=== PATIENT | female | born 1965 | race Caucasian/White ===

== ENCOUNTER 2017-01-14 06:00 | Day surgery (SDC) | payer OTHER ==
[~2017-01-14] VITALS: Ht 160 cm; Wt 84.8 kg
[~2017-01-14 06:00] MED LIST: ALEVE220 MG PO; CIPROFLOXACIN500 MG PO; CLONAZEPAM1 MG PO; HYDROCHLOROTHIA25 MG PO; IBUPROFEN800 MG PO; NORCO 5-325 TA1 EACH PO; SUBOXONE 8 MG-1 EAC1 SL; TYLENOL325 MG PO
--- NOTE | 2017-01-14 07:49 | NUR ---
01/14/17 0749 Dipika Cowart [id number]-PATIENT ARRIVED TO PACU ON 4L NC O2 SAT 97% NONAROUSABLE LAYING ON LEFT SIDE. ABDOMEN ROUND AND SOFT. SB HR 57
--- NOTE | 2017-01-21 10:10 | OR ---
[facility] [address], [place] [address] Signed DATE OF OPERATION: 01/14/2017 SURGEON: Ludivina Beckford MD PREOPERATIVE DIAGNOSIS: Screening. POSTOPERATIVE DIAGNOSIS: Extremely poor prep. PROCEDURE: Colonoscopy without biopsy. ESTIMATED BLOOD LOSS: None. INDICATIONS: Lolly is a 51-year-old female, who was asked to see me for her initial screening colonoscopy. She has no lower GI complaints. There is no family history of colon cancer or polyps. In the office, I gave her a pamphlet on colonoscopy and we looked at that together along with the risks including, but not limited to, gas bloating, crampy abdominal pain, bleeding, perforation, requiring surgery, and missed diagnosis. We had also reviewed our bowel prep in detail. She also understands the need for IV conscious sedation. Given her need for daily Suboxone as well as a previous history of methamphetamine and heroin use, we asked that an anesthesia provider help us with increased monitoring sedation with propofol. She had expressed understanding and wished to proceed. PROCEDURE NOTE: Lolly was taken into our endoscopy suite and placed in the left lateral decubitus position. She was given IV sedation with propofol per our nurse milk treater. A digital rectal exam was performed and we did encounter some dark liquid particulate stool. The adult colonoscope was introduced and we carefully and slowly advanced the scope through multiple areas of liquid particulate dark stool. We slowly but surely made our way to the cecum. We could easily see the ileocecal valve. However, there was too much particulate stool matter to suction the stool through the camera. We slowly withdrew the scope. I would say no more than 50% of the colonic mucosa was visualized. Having said that, we saw no pathology throughout the entire colon or rectum. There was too much liquid stool in the rectum to retroflex the scope and once again it went and suctioned through the scope. Consequently, the gas was suctioned out and the colonoscope removed. Electronically Signed By: LUDIVINA BECKFORD MD 01/21/17 1010 PATIENT NAME: LOLLY LOPES OPERATIVE REPORT DATE OF : 63 PHYSICIAN: LUDIVINA BECKFORD MD REPORT #: [id number] REPORT IS CONFIDENTIAL AND NOT TO BE RELEASED WITHOUT AUTHORIZATION [address] [address] Signed Lolly tolerated the procedure quite well. RECOMMENDATIONS: My office will give Lolly a call and will ask her to repeat the colonoscopy with double bowel prep. MD LEIF Conti/MODL /[id number] cc: AUDELIA Reyes Electronically Signed By: LUDIVINA BECKFORD MD 01/21/17 1010 PATIENT NAME: LOLLY LOPES OPERATIVE REPORT DATE OF : 63 PHYSICIAN: LUDIVINA BECKFORD MD REPORT #: [id number] REPORT IS CONFIDENTIAL AND NOT TO BE RELEASED WITHOUT AUTHORIZATION
== END 2017-01-14 08:25 | disposition home or self-care (01) ==
LOC: OPS 06:00 → DS 06:00 → OPS 06:45
PROVIDERS: Colon & Rectal Surgery
PROC: 0DJD8ZZ Inspection of Lower Intestinal Tract, Via Natural or Artificial Opening Endoscopic (ICD-10-PCS; principal; 2017-01-14 06:45)
DX: Z12.11 Encounter for screening for malignant neoplasm of colon (principal); F17.210 Nicotine dependence, cigarettes, uncomplicated; Z98.51 Tubal ligation status; Z98.41 Cataract extraction status, right eye; Z98.42 Cataract extraction status, left eye; Z98.890 Other specified postprocedural states; Z88.8 Allergy status to other drugs, medicaments and biological substances; Z79.899 Other long term (current) drug therapy
CPT/HCPCS: 00810; J2704; J7120

== ENCOUNTER 2017-01-23 12:24 | Emergency (ER) | payer OTHER ==
[~2017-01-23] VITALS: Ht 160 cm; Wt 83.9 kg
[2017-01-23] MEDS ORDERED: CLEOCIN HCL300 MG PO (14:38)
== END 2017-01-23 15:06 | disposition home or self-care (01) ==
LOC: ED 12:24
PROC: 0H9GXZZ Drainage of Left Hand Skin, External Approach (ICD-10-PCS; principal; 2017-01-23)
DX: L02.512 Cutaneous abscess of left hand (principal); Z98.51 Tubal ligation status; F17.200 Nicotine dependence, unspecified, uncomplicated; Z88.8 Allergy status to other drugs, medicaments and biological substances; Z79.899 Other long term (current) drug therapy
CPT/HCPCS: 10060; 73130; 80053; 85025; 87070; 87077; 87186; 87205; 96365; 99283

== ENCOUNTER 2021-10-13 21:22 | Emergency (ER) | payer OTHER ==
[~2021-10-13] VITALS: Ht 160 cm; Wt 93.9 kg
[~2021-10-13 21:22] MED LIST changes: +CLEOCIN HCL300 MG PO
--- OUTSIDE RECORDS SUMMARY | 2021-10-13 21:24 | XMS ---
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 EMarcie VISIT COUNT (12 MO.) 1 JOHNSON Hernandez TOTAL 1 NOTE: Visits indicate total known visits. ED/UCC VISIT TRACKING (12 MO.) 10/13/2021 21:23 J[facility]NSON Simpson OR TYPE: Emergency COMPLAINT: - SKIN PROBLEM INPATIENT VISIT TRACKING (12 MO.) No inpatient visits to display in this time frame [email or web address]
[2021-10-13] MEDS ORDERED: AMOX TR-K CLV1 EAC1 PO (22:26)
== END 2021-10-13 23:34 | disposition home or self-care (01) ==
LOC: ED 21:22
DX: L03.211 Cellulitis of face (principal); F17.200 Nicotine dependence, unspecified, uncomplicated; Z79.899 Other long term (current) drug therapy; Z88.8 Allergy status to other drugs, medicaments and biological substances
CPT/HCPCS: 96372; 99283; J0696

== ENCOUNTER 2022-02-26 16:20 | Emergency (ER) | payer OTHER ==
[~2022-02-26] VITALS: Ht 160 cm; Wt 93.9 kg
[~2022-02-26 16:20] MED LIST changes: +AMOX TR-K CLV1 EAC1 PO
--- OUTSIDE RECORDS SUMMARY | 2022-02-26 16:22 | XMS ---
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 EMarcie VISIT COUNT (12 MO.) 2 JOHNSON Hernandez TOTAL 2 NOTE: Visits indicate total known visits. ED/UCC VISIT TRACKING (12 MO.) 02/26/2022 16:20 J[facility]NSON Simpson OR TYPE: Emergency COMPLAINT: - SKIN PROBLEM 10/13/2021 21:23 J[facility]NSON Simpson OR TYPE: Emergency COMPLAINT: - SKIN PROBLEM DIAGNOSES: - Localized swelling, mass and lump, head - Cellulitis of face - Allergy status to other drugs, medicaments and biological substances - Nicotine dependence, unspecified, uncomplicated - Other skilled nursing (current) drug therapy INPATIENT VISIT TRACKING (12 MO.) No inpatient visits to display in this time frame [email or web address]
[2022-02-26] MEDS ORDERED: BUPRENORPHINE-1 EACH SL (16:48)
[2022-02-26] MEDS ORDERED: BUSPIRONE HCL5 MG PO (16:48)
[2022-02-26] MEDS ORDERED: LISINOPRIL20 MG PO (16:49)
[2022-02-26] MEDS ORDERED: SERTRALINE HCL100 MG PO (16:49)
[2022-02-26] MEDS ORDERED: AMOX TR-K CLV1 EAC1 PO (18:02)
== END 2022-02-26 18:24 | disposition home or self-care (01) ==
LOC: ED 16:20
DX: L03.211 Cellulitis of face (principal); F17.200 Nicotine dependence, unspecified, uncomplicated; Z88.8 Allergy status to other drugs, medicaments and biological substances; Z79.899 Other long term (current) drug therapy
CPT/HCPCS: 99283